=== PATIENT | female | born 1965 | race Caucasian/White ===

== ENCOUNTER 2022-03-30 21:17 | Observation (INO) ==
[2022-03-30] MEDS ORDERED: diazePAM 10 MG/2 ML SYRINGE IVP ONE (21:42)
[2022-03-30] MEDS ORDERED: Ondansetron 4 MG/2 ML VIAL IVP ONE (21:42)
[2022-03-30] MEDS ORDERED: Lidocaine HCL 4 ML Topical Solution (Laryng-O-Jet Kit Sterile Pak) TP ONE (23:13)
[2022-03-30] MEDS ORDERED: *HR* Propofol 200 MG/20 ML VIAL IVP ONE (23:13)
[2022-03-30] MEDS ORDERED: Lidocaine -MPF 2% 2 ML VIAL ONE (23:17)
[2022-03-30] MEDS ORDERED: *HR* Succinylcholine 200 MG/10 ML VIAL IVP ONE (23:17)
[2022-03-30] MEDS ORDERED: *HR* Labetalol 20 MG/4 ML SYRINGE IVP ONE (23:57)
[2022-03-31] MEDS: Ringers Solution, Lactated 1,000 ML IVC SCH ×2 (00:01→06:17)
[2022-03-31] MEDS ORDERED: Ondansetron 4 MG/2 ML VIAL ONE (00:04)
[2022-03-31] MEDS ORDERED: Acetaminophen IV 1,000 MG/100 ML BAG IVPB ONE (00:04)
[2022-03-31] MEDS ORDERED: *HR* FentaNYL (PF) 100 MCG/2 ML VIAL ONE (00:27)
[2022-03-31] MEDS ORDERED: *HR* HYDROmorphone (PF) 1 MG/ML SYRINGE IVP PRN (00:29)
[2022-03-31] MEDS ORDERED: *HR* OxyCODONE/APAP 5/325 TABLET PO PRN (01:23)
[2022-03-31] MEDS ORDERED: hydrOXYzine pamoate 25 MG CAPSULE PO PRN (06:36)
[2022-03-31 06:39] VITALS: BP 112/69; PULSE 85; TEMP 97.6; O2SAT 93
[2022-03-31] MEDS ORDERED: Acetaminophen 325 MG TABLET PO SCH (08:00)
== END 2022-03-31 10:52 | disposition home or self-care (01) ==
LOC: 3BNU 21:17 → EMEROOARM 21:17 → 3BNU 23:33
PROVIDERS: ADMIT Surgery; ATTEND Surgery